=== PATIENT | male | born 1970 | race Caucasian/White ===

== ENCOUNTER 2022-02-11 00:10 | Inpatient (IN) | payer MEDICAID ==
[2022-02-11] VITALS (7 sets, daily range): BP systolic 94–122
[~2022-02-11] VITALS: Ht 180.3 cm; Wt 60.8 kg
[~2022-02-11 00:10] MED LIST: ACET600C5 PO; ASCO500C18 PO; GUAI100S14 PO; IPRA0.2S53 IH; ONDA4TAB55 PO; SIME80TA15 PO
--- NOTE | 2022-02-11 00:33 | NUR ---
Triaged pt and pt waiting on ambulance gurney until a bed opens up. Pt is A&Ox4. VSS. Medics with pt. Dr. Sommers notified.
--- NOTE | 2022-02-11 00:40 | NUR ---
SERG Julian at bedside examining patient.
--- NOTE | 2022-02-11 00:50 | NUR ---
EKG performed at by Davida ABDULLAHI. Physician given copy of EKG for review.
--- NOTE | 2022-02-11 00:55 | NUR ---
food technician at bedside.
[2022-02-11 01:51] LABS: BASOPHILS % (AUTO) 0.4 % (0.0-2.0); EOSINOPHILS # (AUTO) 0.1 K/uL (0.0-0.4); EOSINOPHILS % (AUTO) 0.6 % (0.0-4.0); HEMATOCRIT 43.6 % (36-54); HEMOGLOBIN 14.4 g/dL (14.0-18.0); LYMPHOCYTES # (AUTO) 2.7 K/uL (1.0-5.5); LYMPHOCYTES % (AUTO) 23.4 % (20.5-51.5); MEAN CORPUSCULAR HEMOGLOBIN 30 pg (27-31); MEAN CORPUSCULAR HGB CONC 33 % (32-36); MEAN CORPUSCULAR VOLUME 90 fL (79.0-98.0); MONOCYTES # (AUTO) 1.1 K/uL (0.0-1.0); MONOCYTES % (AUTO) 9.8 % (1.7-9.3); NEUTROPHILS # (AUTO) 7.5 K/uL (1.8-7.7); NEUTROPHILS % (AUTO) 65.8 % (40.0-70.0); PLATELET COUNT (AUTO) 162 K/uL (130-430); RED BLOOD CELL COUNT(AUTO) 4.84 MIL/uL (4.2-6.2); RED CELL DISTRIBUTION WIDTH 17.5 % (9.0-15.0); WHITE BLOOD COUNT (AUTO) 11.4 K/uL (4.8-10.8)
[2022-02-11] MEDS ORDERED: OXYCODONE/ACETAMINOPHEN *10*mg/325 mg TABLET PO ONE (02:00)
[2022-02-11 02:05] LABS: ANION GAP 15 (5-15); CALCIUM 10.2 mg/dL (8.4-11.0); CHLORIDE 96 mmol/L (98-107); GLUCOSE 93 mg/dL (70-99); UREA NITROGEN, BLOOD 61 mg/dL (8-21)
[2022-02-11 02:07] LABS: GFR AFRICAN AMERICAN 8 mL/min (>90)
[2022-02-11 02:09] LABS: PROTHROMBIN TIME 10.8 SECS (9.5-12.5)
[2022-02-11 02:23] LABS: ALANINE AMINOTRANSFERASE 34 U/L (12-78); ALBUMIN 2.7 g/dL (3.4-4.8); ASPARTATE AMINOTRANSFERASE 49 U/L (10-37); TOTAL BILIRUBIN 0.7 mg/dL (0.0-1.0)
[2022-02-11] MEDS ORDERED: POTASSIUM CHLORIDE 20 MEQ/PKT PACKET GT ONE (03:00)
[2022-02-11 04:59] LABS: BASOPHILS # (AUTO) 0.1 K/uL (0.0-0.2); BASOPHILS % (AUTO) 0.5 % (0.0-2.0); EOSINOPHILS # (AUTO) 0.1 K/uL (0.0-0.4); EOSINOPHILS % (AUTO) 0.8 % (0.0-4.0); HEMATOCRIT 39.3 % (36-54); HEMOGLOBIN 13.1 g/dL (14.0-18.0); LYMPHOCYTES # (AUTO) 2.6 K/uL (1.0-5.5); LYMPHOCYTES % (AUTO) 23.5 % (20.5-51.5); MEAN CORPUSCULAR HEMOGLOBIN 30 pg (27-31); MEAN CORPUSCULAR HGB CONC 33 % (32-36); MEAN CORPUSCULAR VOLUME 90 fL (79.0-98.0); MONOCYTES # (AUTO) 1.2 K/uL (0.0-1.0); NEUTROPHILS % (AUTO) 64.2 % (40.0-70.0); PLATELET COUNT (AUTO) 148 K/uL (130-430); RED BLOOD CELL COUNT(AUTO) 4.35 MIL/uL (4.2-6.2); WHITE BLOOD COUNT (AUTO) 10.9 K/uL (4.8-10.8)
--- NOTE | 2022-02-11 05:10 | NUR ---
Admit bed requested Patient will be admitted to care of . Admitted to TELEMETRY unit. Diagnosis DIALYSIS CATHETER MALFUNCTION Inpatient (Yes or No) YES Observation (Yes or No) NO Orientation concerns or request close to nursing station (Yes or No) NO Covid Status NEGATIVE On vent or bipap NO Isolation requirements NO Needs a sitter NO From Home (Yes or if No enter name of facility)[facility]] Requires Dialysis (Yes or No) YES Med Rec Completed (Yes of No) YES
[2022-02-11 05:13] LABS: CALCIUM 10.1 mg/dL (8.4-11.0)
[2022-02-11 05:18] LABS: ALBUMIN 2.5 g/dL (3.4-4.8); CREATININE 8.98 mg/dL (0.55-1.30); TOTAL BILIRUBIN 0.7 mg/dL (0.0-1.0)
--- NOTE | 2022-02-11 05:18 | NUR ---
MARTITA RECEIVED FROM [facility] K 2.3
[2022-02-11] MEDS ORDERED: NS IV ONE (05:30)
[2022-02-11] MEDS ORDERED: KCL IV ONE (05:30)
[2022-02-11] MEDS ORDERED: LIDOCAINE JECT IV ONE (05:30)
--- NOTE | 2022-02-11 06:11 | NUR ---
PT WAS TRANSFERED TO BED 130 VIA BED, WITH NURSE AND EMT. PT UNABLE TO AMBULATE, TOLERATED TRANSFER WELL NURSE AT BEDSIDE TO RECEIVE PT. PT A&OX4, NO DISTRESS NOTED.
--- NOTE | 2022-02-11 06:33 | NUR ---
CONSULTATION PAGED REASON FOR CONSULTATION:DIALYSIS CATHETER MALFUNCTION WAS CONSULT CALLED?Y PERSON WHO WAS NOTIFIED:MILE CONSULTING PHYSICIAN:FILOMENA GARIBAY ( SENIOR RD ENGINEER) CAPACITY PLANNER SPECIALTY:NEPHRO CAPACITY PLANNER PHONE NUMBER:[phone] REQUESTING PHYSICIAN:JANET IBARRA
--- NOTE | 2022-02-11 06:45 | NUR ---
ADMISSION NOTE Received patient from ER via gurney. Patient admitted with diagnosis of DIALYSIS CATHETER MALFUNCTION. Patient is awake, alert, oriented X 4. Patient oriented to hospital room, call light, toileting, pain management and safety-teach back done. Patient informed that their room number is 130A. Personal belongings checked and Belongings List documented. Call light within reach.
[2022-02-11] MEDS ORDERED: POTASSIUM CHLORIDE 20 MEQ/PKT PACKET PO ONE (08:45)
[2022-02-11] MEDS ORDERED: POTASSIUM CHLORIDE 20 MEQ TAB.PRT.SR GT ONE (08:45)
[2022-02-11] MEDS ORDERED: ALTEPLASE 2 MG VIAL MC ONE (09:00)
[2022-02-11] MEDS ORDERED: LevALBUTEROL HCL 1.25 MG/0.5 ML *CONC.* VIAL.NEB (XOPENEX CONC.) INH PRN (09:00)
[2022-02-11] MEDS ORDERED: POTASSIUM CHLORIDE 20 MEQ/PKT PACKET ONE (09:08)
[2022-02-11] MEDS: SIMETHICONE 80 MG TAB.CHEW PO SCH ×3 (09:09→21:01)
[2022-02-11] MEDS: LevALBUTEROL HCL 1.25 MG/0.5 ML *CONC.* VIAL.NEB (XOPENEX CONC.) INH SCH ×3 (10:16→23:42)
--- NOTE | 2022-02-11 12:35 | NUR ---
CONSULTATION PAGED REASON FOR CONSULTATION:DIALYSIS CATHETER MALFUNCTIONIONG WAS CONSULT CALLED?Y PERSON WHO WAS NOTIFIED:EXCHANGE CONSULTING PHYSICIAN:CECI AUGUSTIN BRUSH CLEARER SURVEYING SPECIALTY:SURGEON BRUSH CLEARER SURVEYING PHONE NUMBER:[phone] REQUESTING PHYSICIAN:JANET IBARRA
[2022-02-11] MEDS: ONDANSETRON HCL 4 MG/2 ML VIAL IVP PRN (12:46)
[2022-02-11 14:13] LABS: ALBUMIN 2.7 g/dL (3.4-4.8); CALCIUM 9.8 mg/dL (8.4-11.0); TOTAL BILIRUBIN 0.7 mg/dL (0.0-1.0)
[2022-02-11 14:55] LABS: CREATININE 9.18 mg/dL (0.55-1.30)
[2022-02-11] MEDS ORDERED: METOCLOPRAMIDE HCL 10 MG/2 ML VIAL IVP PRN (16:45)
[2022-02-11] MEDS ORDERED: NS 1000 ML IV.SOLN IV ONE (16:55)
[2022-02-11] MEDS ORDERED: fentaNYL CITRATE/PF 100 MCG/2 ML AMP IVP ONE (16:55)
[2022-02-11] MEDS ORDERED: CEFAZOLIN 1 GM IVPB PREMIX 50 ML IV ONE (16:55)
[2022-02-11] MEDS ORDERED: NS IRRIG SOLN 1000 ML IR ONE (16:55)
[2022-02-11] MEDS ORDERED: BUPIVACAINE /PF 0.5% 30 ML VIAL INJ ONE (16:55)
[2022-02-11] MEDS ORDERED: ONDANSETRON HCL 4 MG/2 ML VIAL IVP ONE (16:55)
[2022-02-11] MEDS ORDERED: METOCLOPRAMIDE HCL 10 MG/2 ML VIAL IVP ONE (16:55)
[2022-02-11] MEDS ORDERED: HEPARIN SODIUM, PORCINE 10,000 UNITS/ 10 ML VIAL MC ONE (16:55)
[2022-02-11] MEDS ORDERED: ETOMIDATE 20 MG/ 10 ML VIAL (AMIDATE) IVP ONE (16:55)
[2022-02-11] MEDS ORDERED: SUCCINYLCHOLINE CHLORIDE 20 MG/ML(QUELICIN) IVP ONE (16:55)
--- NOTE | 2022-02-11 17:37 | NUR ---
CONSULTATION PAGED REASON FOR CONSULTATION:COFFEE GROND EMESIS WAS CONSULT CALLED?Y PERSON WHO WAS NOTIFIED:ANU CONSULTING PHYSICIAN:OBDULIA HARRINGTON PARK WORKER SPECIALTY:GI PARK WORKER PHONE NUMBER:[phone] REQUESTING PHYSICIAN:JANET IBARRA
[2022-02-11] MEDS ORDERED: PANTOPRAZOLE SODIUM 40 MG/VIAL (PROTONIX) IVP ONE (18:00)
--- NOTE | 2022-02-11 18:35 | NUR ---
CLOSING NOTE PT is awake and alert x4, no febrile, and no pain reported. Stable VTs. Coffee ground emesis, zofran and reglan given. MD Leonard notified and ordered NPO excepts meds and GI consult with Dr. Rico. Dr. Rico notified. Possible hemodialysis catheter replacement by Dr. Angulo
[2022-02-11] MEDS ORDERED: D5NS 1,000 ML IV SCH (20:00)
[2022-02-11] MEDS: KCL 20 mEq in D5NS 1000 mL 1,000 ML IV SCH (21:01)
[2022-02-12 00:16] VITALS: BP_SYST 89
[2022-02-12 04:00] VITALS: BP_SYST 96
[2022-02-12 06:56] LABS: BASOPHILS % (AUTO) 0.4 % (0.0-2.0); EOSINOPHILS # (AUTO) 0.1 K/uL (0.0-0.4); EOSINOPHILS % (AUTO) 0.9 % (0.0-4.0); HEMATOCRIT 35.2 % (36-54); HEMOGLOBIN 11.8 g/dL (14.0-18.0); LYMPHOCYTES # (AUTO) 2.1 K/uL (1.0-5.5); LYMPHOCYTES % (AUTO) 25.8 % (20.5-51.5); MEAN CORPUSCULAR HEMOGLOBIN 30 pg (27-31); MEAN CORPUSCULAR HGB CONC 34 % (32-36); MEAN CORPUSCULAR VOLUME 91 fL (79.0-98.0); MONOCYTES # (AUTO) 0.9 K/uL (0.0-1.0); MONOCYTES % (AUTO) 11.4 % (1.7-9.3); NEUTROPHILS % (AUTO) 61.5 % (40.0-70.0); PLATELET COUNT (AUTO) 121 K/uL (130-430); RED BLOOD CELL COUNT(AUTO) 3.89 MIL/uL (4.2-6.2); RED CELL DISTRIBUTION WIDTH 17.3 % (9.0-15.0); WHITE BLOOD COUNT (AUTO) 8.1 K/uL (4.8-10.8)
--- NOTE | 2022-02-12 06:59 | NUR ---
Patient stable this shift he is going for removal and replacement of the dialysis catheter. vitals within normal, no signs of distress, he has his potassium running. To endorse to oncoming RN for continuity of care.
[2022-02-12 07:16] LABS: ALBUMIN 2.3 g/dL (3.4-4.8); CALCIUM 9.6 mg/dL (8.4-11.0); TOTAL BILIRUBIN 0.6 mg/dL (0.0-1.0)
[2022-02-12] MEDS: LevALBUTEROL HCL 1.25 MG/0.5 ML *CONC.* VIAL.NEB (XOPENEX CONC.) INH SCH ×3 (07:55→23:52)
[2022-02-12 07:58] LABS: CREATININE 9.42 mg/dL (0.55-1.30)
[2022-02-12 08:06] VITALS: BP_SYST 108
--- NOTE | 2022-02-12 09:09 | NUR ---
ATTENDING MD DR JIMÉNEZ WAS CALLED, RE: CRITICAL K LEVEL.
[2022-02-12] MEDS: KCL 20 mEq in D5NS 1000 mL 1,000 ML IV SCH (09:20)
[2022-02-12] MEDS ORDERED: POTASSIUM CHLORIDE 20 MEQ TAB.PRT.SR GT ONE (09:30)
[2022-02-12] MEDS: PANTOPRAZOLE SODIUM 40 MG/VIAL (PROTONIX) IVP SCH (09:58)
[2022-02-12] MEDS: ASCORBIC ACID 500 MG TABLET PO SCH (09:58)
[2022-02-12] MEDS: SIMETHICONE 80 MG TAB.CHEW PO SCH ×3 (10:01→21:49)
[2022-02-12 11:50] VITALS: BP_SYST 107
[2022-02-12 16:35] VITALS: BP_SYST 120
[2022-02-12] MEDS ORDERED: MORPHINE 4 MG INJ. 4 MG/ML VIAL IVP PRN ×3 (18:00)
[2022-02-12] MEDS ORDERED: ONDANSETRON HCL 4 MG/2 ML VIAL IVP PRN (18:00)
[2022-02-12] MEDS ORDERED: ACETAMINOPHEN I.V. 1000 MG 100 ML IV ONE ×2 (18:18→18:30)
[2022-02-12 20:00] VITALS: BP_SYST 119
--- NOTE | 2022-02-12 20:35 | NUR ---
Patient awaited all day for surgery to replace his dialysis catheter. NPO since patient arrived except for med's and one time dose of potassium 40 mEq via g tube for low K of2.9. Pre op check list completed prior to surgery all consent's signed. Bean Picker used to explain plan of care and consent's. Patient able to consent for self. left for surgery around 16:00 and then returned at 19:00 VSS afebrile with BP 106/65 HR 85 RR 18 SAT's 100 percent on 4 liter's N/C Dr dunlap called after patient returned from surgery to resume TF's IVF's to decrease to 30cc/hr and resume all other orders including AM lab's CBC and BMP. Patient back on monitor reporting off to night RN
[2022-02-13] VITALS: BP_SYST 109
[2022-02-13] MEDS: KCL 20 mEq in D5NS 1000 mL 1,000 ML IV SCH (02:19)
[2022-02-13 04:00] VITALS: BP_SYST 112
[2022-02-13] MEDS: LevALBUTEROL HCL 1.25 MG/0.5 ML *CONC.* VIAL.NEB (XOPENEX CONC.) INH SCH ×3 (07:18→23:00)
[2022-02-13 07:52] VITALS: BP_SYST 126
[2022-02-13 07:59] LABS: CALCIUM 9.4 mg/dL (8.4-11.0)
[2022-02-13 08:10] LABS: CREATININE 9.72 mg/dL (0.55-1.30)
--- NOTE | 2022-02-13 08:11 | NUR ---
CRITICAL INFORMED RN OF CRITICAL CREATININE 9.72 AND + FOR MRSA
[2022-02-13 08:16] LABS: BASOPHILS % (AUTO) 0.5 % (0.0-2.0); EOSINOPHILS # (AUTO) 0.2 K/uL (0.0-0.4); EOSINOPHILS % (AUTO) 2.8 % (0.0-4.0); HEMATOCRIT 35.3 % (36-54); HEMOGLOBIN 11.8 g/dL (14.0-18.0); LYMPHOCYTES # (AUTO) 1.6 K/uL (1.0-5.5); LYMPHOCYTES % (AUTO) 22.6 % (20.5-51.5); MEAN CORPUSCULAR HEMOGLOBIN 31 pg (27-31); MEAN CORPUSCULAR HGB CONC 33 % (32-36); MEAN CORPUSCULAR VOLUME 92 fL (79.0-98.0); MONOCYTES # (AUTO) 0.7 K/uL (0.0-1.0); MONOCYTES % (AUTO) 10.5 % (1.7-9.3); NEUTROPHILS # (AUTO) 4.4 K/uL (1.8-7.7); NEUTROPHILS % (AUTO) 63.6 % (40.0-70.0); PLATELET COUNT (AUTO) 101 K/uL (130-430); RED BLOOD CELL COUNT(AUTO) 3.86 MIL/uL (4.2-6.2); RED CELL DISTRIBUTION WIDTH 17.7 % (9.0-15.0); WHITE BLOOD COUNT (AUTO) 6.9 K/uL (4.8-10.8)
[2022-02-13] MEDS: METOCLOPRAMIDE HCL 10 MG/2 ML VIAL IVP SCH ×2 (11:00→19:39)
[2022-02-13] MEDS: PANTOPRAZOLE SODIUM 40 MG/VIAL (PROTONIX) IVP SCH (11:24)
[2022-02-13] MEDS: SIMETHICONE 80 MG TAB.CHEW PO SCH ×4 (11:24→23:50)
[2022-02-13] MEDS: ASCORBIC ACID 500 MG TABLET PO SCH (11:24)
[2022-02-13 11:59] VITALS: BP_SYST 121
[2022-02-13] MEDS ORDERED: HEPARIN SODIUM,PORCINE 5,000 UNITS/ML VIAL MC PRN (12:15)
--- NOTE | 2022-02-13 12:23 | NUR ---
Dietitian recommendations: 1. Consider Nepro with goal rate of 45 ml/h. TF at 45 ml/h will provide 1944 Kcals, 87 gm protien, 785 ml free water. TF will meet 107% of lower end of Kcal need and 102% of upper end of estimated protein need. 2. Additional water flush per MD. 2. Consider Nephrovite. Please refer to nutrition assessment for details. JOSE, RD
[2022-02-13 16:00] VITALS: BP_SYST 124
[2022-02-13 20:00] VITALS: BP_SYST 117
--- NOTE | 2022-02-13 20:19 | NUR ---
PATIENT TOLERATED DIALYSIS WELL TODAY AFTER RECEIVING NEW HD CATHETER YESTERDAY. CONTINUES TO HAVE GI PROBLEMS NOT TOLERATING TUBE FEEDINGS HAVING LOT'S OF NAUSEA. RECEIVING REGLAN FOR GI SYMPTOMS. ABDOMEN DISTENDED FEEDING'S TURNED OFF AROUND 15:30 PATIENT NAUSEATED REQUESTING TO HAVE FEEDING'S OFF. PATIENT'S ATTENDING DR NOTIFIED WITH NEW ORDERS OF CHEST X RAY NOW BREATHING TREATMENT SPUTUM FOR CULTURE AND TO CONTINUE TO MONITOR. CONTINUES TO HAVE IVF'S AT 30CC/HR. REPORTED OFF TO NIGHT RN SPUTUM COLLECTED AND IN LAB. WATCHING TV APPEARS TO BE MORE COMFORTABLE. SISTER CAME TO SEE PATIENT TODAY.
--- NOTE | 2022-02-13 21:59 | NUR ---
Dr. Knight and Dr. Ojedaium informed regarding clogged Gtube , IV fluid increased to 60 ml/hour
--- NOTE | 2022-02-13 23:00 | NUR ---
Tried to declogged the GTUBE by milking , flushing with warm water , pressure for the second time failed again., dressing changed
[2022-02-14] VITALS: BP_SYST 122
[2022-02-14] MEDS: METOCLOPRAMIDE HCL 10 MG/2 ML VIAL IVP SCH ×4 (02:44→21:32)
[2022-02-14] MEDS: KCL 20 mEq in D5NS 1000 mL 1,000 ML IV SCH ×2 (02:45→18:59)
[2022-02-14] MEDS: LevALBUTEROL HCL 1.25 MG/0.5 ML *CONC.* VIAL.NEB (XOPENEX CONC.) INH SCH ×2 (07:20→15:00)
[2022-02-14 08:00] VITALS: BP_SYST 109
[2022-02-14 08:16] LABS: CALCIUM 9.1 mg/dL (8.4-11.0); CREATININE 7.14 mg/dL (0.55-1.30)
[2022-02-14 08:29] LABS: BASOPHILS % (AUTO) 0.5 % (0.0-2.0); EOSINOPHILS # (AUTO) 0.3 K/uL (0.0-0.4); EOSINOPHILS % (AUTO) 3.4 % (0.0-4.0); HEMATOCRIT 35.6 % (36-54); HEMOGLOBIN 11.7 g/dL (14.0-18.0); LYMPHOCYTES # (AUTO) 2.2 K/uL (1.0-5.5); LYMPHOCYTES % (AUTO) 26.9 % (20.5-51.5); MEAN CORPUSCULAR HEMOGLOBIN 30 pg (27-31); MEAN CORPUSCULAR HGB CONC 33 % (32-36); MEAN CORPUSCULAR VOLUME 92 fL (79.0-98.0); MONOCYTES # (AUTO) 0.9 K/uL (0.0-1.0); MONOCYTES % (AUTO) 10.4 % (1.7-9.3); NEUTROPHILS # (AUTO) 4.9 K/uL (1.8-7.7); NEUTROPHILS % (AUTO) 58.8 % (40.0-70.0); PLATELET COUNT (AUTO) 71 K/uL (130-430); RED BLOOD CELL COUNT(AUTO) 3.89 MIL/uL (4.2-6.2); RED CELL DISTRIBUTION WIDTH 17.6 % (9.0-15.0); WHITE BLOOD COUNT (AUTO) 8.3 K/uL (4.8-10.8)
[2022-02-14] MEDS ORDERED: DIATR MEGLU/DIATRIZ SOD 30 ML SOLUTION PO ONE (08:38)
[2022-02-14] MEDS: PANTOPRAZOLE SODIUM 40 MG/VIAL (PROTONIX) IVP SCH (08:47)
[2022-02-14] MEDS: ASCORBIC ACID 500 MG TABLET PO SCH (08:47)
[2022-02-14 11:49] VITALS: BP_SYST 118
[2022-02-14] MEDS ORDERED: POTASSIUM CHLORIDE 20 MEQ/PKT PACKET GT ONE ×2 (13:00→17:00)
--- NOTE | 2022-02-14 13:25 | NUR ---
PT WAS SEEN FOR DYSPHAGIA. PT WAS COUGHING WITH TRIALS OF APPLE SAUCE AND NECTAR THICK LIQUID. RECOMMENDATION NOTHING BY MOUTH
[2022-02-14] MEDS: SIMETHICONE 80 MG TAB.CHEW PO SCH ×2 (15:00→21:31)
[2022-02-14 15:51] LABS: INR 1.1 (0.80-1.20); PROTHROMBIN TIME 11.6 SECS (9.5-12.5)
[2022-02-14 17:01] VITALS: BP_SYST 116
--- NOTE | 2022-02-14 19:45 | NUR ---
Tube feeding started Seen and examined by Dr. Leonard tube feeding started @ 30 ML/hour aspiration precaution, prior to start of feeding checked no residual, will monitor.
--- NOTE | 2022-02-14 19:51 | NUR ---
PATIENT G TUBE CLOGGED THIS MORNING ABLE TO UNCLOG TUBE WITH OUT PROBLEMS USING [place]. PATIENT REFUSED GI TEST ABLE TO GET A FEW PICTURE'S OF GI SYSTEM DOCTOR NOTIFIED. GI DOCTOR HERE THIS MORNING TO SEE PATIENT FOR FIRST TIME. PATIENT CONTINUES TO COUGH UP LOT'S OF SECRETION'S CONSTANTLY. POTASSIUM LEVEL LOW AGAIN TODAY DR JIMÉNEZ NOTIFIED WITH ORDER'S OF 40MEQ VIA G TUBE. IV ACCESS LOSS AND OBTAINED ORDERS FOR PICC LINE. CONSENT OBTAINED PROTOCOL FOLLOWED PRIOR TO PICC LINE NURSE PLACING NEW PICC LINE FOLLOW UP STAT CHEST X RAY COMPLETED AT SHIFT CHANGE AND NIGHT RN TO FOLLOW UP. STAT REPEAT POTASSIUM LEVEL DONE AFTER REPLACING POTASSIUM WITH K COMING BACK NORMAL. PATIENT NEW HD CATHETER DRAINING SMALL AMOUNT OF SEROUS BLOOD. SMALL DRESSING APPLIED AND NEW DRESSING APPLIED USING STERILE TECHNIQUE. PLAN OF CARE CONTINUE TO MONITOR GI SYSTEM AND KIDNEY STATUS. REMAIN'S NPO FAILED SWALLOW TEST TODAY. EMOTIONAL SUPPORT THERAPEUTIC COMMUNICATION GIVEN. PATIENT GET'S DISCOURAGED FROM TIME TO TIME LASHING OUT AT STAFF
[2022-02-14 20:00] VITALS: BP_SYST 128
--- NOTE | 2022-02-14 20:00 | NUR ---
Post PICC LINE Chest Xray seen by ER Dr. Matos and said OK to use PICC line,; Dr. Horacio resendiz.
--- NOTE | 2022-02-14 22:45 | NUR ---
GI Had big large bowel movement loose stool brown color, perineal care given ,
[2022-02-15 00:13] VITALS: BP_SYST 130
[2022-02-15] MEDS: LevALBUTEROL HCL 1.25 MG/0.5 ML *CONC.* VIAL.NEB (XOPENEX CONC.) INH SCH ×3 (05:53→15:26)
--- NOTE | 2022-02-15 06:00 | NUR ---
Tolerating tube feeding @ 30 ml /hour no vomiting, aspiration precaution , perineal care given , repositioned.
[2022-02-15 07:01] LABS: CALCIUM 8.9 mg/dL (8.4-11.0)
[2022-02-15 07:04] LABS: CREATININE 7.82 mg/dL (0.55-1.30)
--- NOTE | 2022-02-15 07:30 | NUR ---
rn opening note report was endorsed by night nurse. patient is awake and alert laying in bed. report was endorsed by night nurse. no other needs at this time.
[2022-02-15 08:00] VITALS: BP_SYST 132
[2022-02-15] MEDS: ASCORBIC ACID 500 MG TABLET PO SCH (08:16)
[2022-02-15] MEDS: SIMETHICONE 80 MG TAB.CHEW PO SCH ×3 (08:16→22:14)
[2022-02-15] MEDS: PANTOPRAZOLE SODIUM 40 MG/VIAL (PROTONIX) IVP SCH (08:17)
[2022-02-15] MEDS: ONDANSETRON HCL 4 MG/2 ML VIAL IVP PRN (08:19)
--- NOTE | 2022-02-15 08:35 | NUR ---
MEDICATION PATIENT IS AWAKE AND ALERT SITTING UP IN BED. COMPLAINS OF NAUSEA AND VOMITING MEDICATED PER ORDER. PATIENTS G TUBE HAS 0 RESIDUAL. PATIENT EDUCATED LIVE OUT NANNY LIGHT FOR ASSISTANCE. ALL SCHEDULED MEDICATION GIVEN PER ORDER. PATIENT HAS NO OTHER NEEDS AT THIS TIME.
--- NOTE | 2022-02-15 09:30 | NUR ---
Tube feeding pateint is still throwing up is requesting for G tube feeding to be turned off. G tube feeding turned off. patient educated executive receptionist light for assistance. call light is with him. no other needs at this time.
[2022-02-15 11:39] VITALS: BP_SYST 109
[2022-02-15] MEDS: KCL 20 mEq in D5NS 1000 mL 1,000 ML IV SCH (12:51)
[2022-02-15] MEDS: METOCLOPRAMIDE HCL 10 MG/2 ML VIAL IVP SCH ×2 (12:51→19:25)
--- NOTE | 2022-02-15 12:55 | NUR ---
medication patients medication given per order. iv fluid hung per order. patients tube feeding started back up at 10ml/hr to see how he tolerates it. patient is not actively throwing up. educated international marketing coordinator light for assistance. call light is with him. patient has no other needs at this time.
--- NOTE | 2022-02-15 14:30 | NUR ---
increased tube feeding to 20ml/hr Dr. dunlap at nurses station informed him of patient requesting it off and turned back on and slowly increasing ok to keep increasing as long as tolerating to goal rate. patient is still not throwing up. patient shows no signs of any distress. breathing is equal and non labored. all safety precautions in place. call light is with her. no other needs at this time.
--- NOTE | 2022-02-15 15:16 | NUR ---
Discharge Planning: DCP faxed pt referral to [facility] [phone]
--- NOTE | 2022-02-15 16:49 | NUR ---
Increased tube feeding to 30ml/hr. patient is laying in bed no signs of any distress. Breathing is equal and non labored. patient has all safety precautions in place. call light is with in reach. no other needs at this time.
[2022-02-15 18:19] VITALS: BP_SYST 130
--- NOTE | 2022-02-15 19:15 | NUR ---
rn neeraj note patient appears to be resting with both eyes closed. patients scheduled medication given as ordered. all safety precautions in place no signs of any distress. call light is with him educated to use for assistance. report was endorsed by night nurse.
[2022-02-15 21:00] VITALS: BP_SYST 135
--- NOTE | 2022-02-15 21:00 | NUR ---
Patient Gastric Tube noted to be clogged , charge Nurse informed made aware will continue to try to un klog / .
--- NOTE | 2022-02-15 23:00 | NUR ---
HEMODIALYSIS order printed and given to Secretary Specialist , DAPHNEY for AM .
--- NOTE | 2022-02-15 23:18 | NUR ---
Gastric TUBE unclogged & Nephro TF running infusing 30 ML hour Reglan also given for nausea .
[2022-02-16 01:00] VITALS: BP_SYST 131
[2022-02-16] MEDS: METOCLOPRAMIDE HCL 10 MG/2 ML VIAL IVP SCH ×3 (03:15→21:00)
[2022-02-16] MEDS: KCL 20 mEq in D5NS 1000 mL 1,000 ML IV SCH ×2 (03:15→21:01)
--- NOTE | 2022-02-16 03:17 | NUR ---
HOURLY ROUNDING REGLAN 5 MG IVP given for nausea and helpful .
[2022-02-16] MEDS: LevALBUTEROL HCL 1.25 MG/0.5 ML *CONC.* VIAL.NEB (XOPENEX CONC.) INH SCH ×3 (04:09→23:50)
[2022-02-16 06:49] LABS: CALCIUM 9.4 mg/dL (8.4-11.0)
[2022-02-16 06:53] LABS: BASOPHILS # (AUTO) 0.1 K/uL (0.0-0.2); BASOPHILS % (AUTO) 0.6 % (0.0-2.0); EOSINOPHILS # (AUTO) 0.3 K/uL (0.0-0.4); EOSINOPHILS % (AUTO) 3.5 % (0.0-4.0); HEMATOCRIT 32.6 % (36-54); HEMOGLOBIN 10.6 g/dL (14.0-18.0); LYMPHOCYTES # (AUTO) 2.1 K/uL (1.0-5.5); LYMPHOCYTES % (AUTO) 24.7 % (20.5-51.5); MEAN CORPUSCULAR HEMOGLOBIN 30 pg (27-31); MEAN CORPUSCULAR HGB CONC 33 % (32-36); MEAN CORPUSCULAR VOLUME 93 fL (79.0-98.0); MONOCYTES # (AUTO) 0.6 K/uL (0.0-1.0); NEUTROPHILS # (AUTO) 5.4 K/uL (1.8-7.7); NEUTROPHILS % (AUTO) 64.2 % (40.0-70.0); PLATELET COUNT (AUTO) 83 K/uL (130-430); RED BLOOD CELL COUNT(AUTO) 3.51 MIL/uL (4.2-6.2); RED CELL DISTRIBUTION WIDTH 18.1 % (9.0-15.0); WHITE BLOOD COUNT (AUTO) 8.4 K/uL (4.8-10.8)
[2022-02-16 07:19] LABS: CREATININE 7.83 mg/dL (0.55-1.30)
--- NOTE | 2022-02-16 07:28 | NUR ---
PHONED PAGED DR CRAWFORD D/T CR 7.18
[2022-02-16 08:00] VITALS: BP_SYST 129
[2022-02-16] MEDS: SIMETHICONE 80 MG TAB.CHEW PO SCH ×3 (09:04→21:00)
[2022-02-16] MEDS: ASCORBIC ACID 500 MG TABLET PO SCH (09:04)
[2022-02-16] MEDS: PANTOPRAZOLE SODIUM 40 MG/VIAL (PROTONIX) IVP SCH (09:04)
--- NOTE | 2022-02-16 12:29 | NUR ---
REPORT ENDORSED CARE TO KAYLEN TORRES
--- NOTE | 2022-02-16 12:53 | NUR ---
Nutrition F/U Admitting Diagnosis dialysis catheter malfunction Reviewed Pertinent Medical/Surgical Hx Medical Record Medical History Comment: PMH: history of stroke s/p G-tube for feeding, ESRD on HD, anemia of chronic disease, asthma Reason for admission: Presented from alf with HD line dysfunction, hypokalemia, ileus likely 2/2 decreased mobility Subjective Information The patient was having HD at time of visit, and was sleeping. TF was running at 30 mL/hr and according to chart, has been at 30mL since 02/12; w/ GRV under 30 mL since the . Current TF rate: Provides: 1296 kcal, 58 g pro, and 523 mL free water Meets: 71% of lower kcal, 79% lower protein needs Per EMR review , LBM:02/14 x 1; abdomen soft, non-distended, active bowel sounds. Current Diet Order/Nutrition Support Nepro at 50 ml/h x 5 days Patient/Significant Other Unable To Verbalize Education Provided Not Indicated NEW Pertinent Medications D5NS @ w/ 20 mEq KCl at 60 ml/h (245 Kcals), Reglan, Zofran, VIT C, Protonix IV NEW Pertinent Labs BUN 53(H), creatinine 7.83(H)*, K+ 3.5(WNL), glucose 77(WNL), eGFR 8 (L) Height (Feet) 5 feet Height (Inches) 11.00 inches Weight (Pounds) 134 pounds Weight (Calculated Kilograms) 60.961680 kilograms Patient Weight 60.781 kg Body Mass Index 18.69 kg/m2 %IBW 78 [place]/Adjusted Body Weight 172# (78.2 Kg) Recent Weight Change noted with significantly different weight from 01/2022 admission wt 71.7Kg Gastrointestinal Symptoms Vomiting Difficulty With: Swallowing Food Allergies no food allergies documented Usual Diet At Home Nepro at 40 ml/h per MD note Skin Integrity Comment: Ywatt score 17 No other skin issues documented. Edema: none documented Estimated Energy Expenditure (kcals/day) 3302-8296 (ABW 60.8 K-35 Kcals/Kg maintenance HD) Estimated Protein Required (g/day) 73-85 (ABW 60.8 K.2-1.4 gm/Kg, maintenance HD) Estimated Fluid Required (l/day) per MD Problem/Etiology/Signs/Symptoms Potential for intolerance to enteral nutrition via G-tube 2/2 history of ileus related to immobility AEB TF on hold (resolved). Swallowing difficulty R/T CVA AEB G-tube for nutrition provision (ongoing). Altered nutrition-related lab values R/T renal dysfunction AEB abnormal BUN/creatinine, K+ (ongoing) Increased risk of developing a pressure injury AEB history of stroke now with limited mobility (ongoing). Expected Outcomes/Goals Monitor tolerance of enteral nutrition with goal of TF providing >85% of the patient's estimated nutrition needs, nutrition-related lab values within acceptable range, maintain BMI >18.5 Kg/m2. Dietitian Recommendations 1. Consider Nepro with goal rate of 45 ml/h. TF at 45 ml/h will provide 1944 Kcals, 87 gm protein, 785 ml free water. TF will meet 107% of lower end of Kcal need and 102% of upper end of estimated protein need. 2. Additional water flush per MD. 2. Consider Nephrovite Follow Up Mod Risk: F/U in 3-5 days FRANKIE, MPH, RD
--- NOTE | 2022-02-16 12:55 | NUR ---
Dietitian Recommendations 1. Consider Nepro with goal rate of 45 ml/h. TF at 45 ml/h will provide 1944 Kcals, 87 gm protein, 785 ml free water. TF will meet 107% of lower end of Kcal need and 102% of upper end of estimated protein need. 2. Additional water flush per MD. 2. Consider Nephrovite GS, MPH, RD Please refer to RD F/U for further details
--- NOTE | 2022-02-16 13:27 | NUR ---
Patient finished dialysis. BP wnl. Output 2.3L out.
[2022-02-16 13:43] VITALS: BP_SYST 116
[2022-02-16 15:26] VITALS: BP_SYST 134
--- NOTE | 2022-02-16 18:47 | NUR ---
Patient report to be given to oncoming RN. Will continue to monitor. No distress noted. Changed and turned patient. One BM noted.
[2022-02-16 20:00] VITALS: BP_SYST 126
--- NOTE | 2022-02-16 22:00 | NUR ---
Patient alert and oriented x 3, resp with ease and unlabored, abdomen soft and non distended, Nepro at 40ml per Kangaroo pump, gtube was noted to be clogged, gtube declogged easily with 30 cc's of free water area cleaned and dry dressing applied around the stoma site. also patient recieved HD on dayshift 3 l were removed, small amount noted around perma cath, no complaints of pain at site.
[2022-02-17] VITALS: BP_SYST 127
[2022-02-17] MEDS: METOCLOPRAMIDE HCL 10 MG/2 ML VIAL IVP SCH ×3 (03:57→15:14)
[2022-02-17 06:42] LABS: CALCIUM 8.3 mg/dL (8.4-11.0); CREATININE 5.14 mg/dL (0.55-1.30); PHOSPHORUS 2.2 mg/dL (2.7-4.5)
--- NOTE | 2022-02-17 07:00 | NUR ---
Report received from manufacturing shift supervisor RN for continuity of care. Patient stable.
[2022-02-17] MEDS: LevALBUTEROL HCL 1.25 MG/0.5 ML *CONC.* VIAL.NEB (XOPENEX CONC.) INH SCH ×2 (07:11→15:11)
[2022-02-17 07:45] VITALS: BP_SYST 105
[2022-02-17 08:17] LABS: BASOPHILS % (AUTO) 0.4 % (0.0-2.0); EOSINOPHILS # (AUTO) 0.2 K/uL (0.0-0.4); HEMATOCRIT 33.4 % (36-54); HEMOGLOBIN 10.9 g/dL (14.0-18.0); MEAN CORPUSCULAR HEMOGLOBIN 30 pg (27-31); MEAN CORPUSCULAR HGB CONC 33 % (32-36); MEAN CORPUSCULAR VOLUME 92 fL (79.0-98.0); MONOCYTES # (AUTO) 0.6 K/uL (0.0-1.0); MONOCYTES % (AUTO) 8.7 % (1.7-9.3); NEUTROPHILS # (AUTO) 3.6 K/uL (1.8-7.7); NEUTROPHILS % (AUTO) 56.9 % (40.0-70.0); RED BLOOD CELL COUNT(AUTO) 3.64 MIL/uL (4.2-6.2); RED CELL DISTRIBUTION WIDTH 16.9 % (9.0-15.0); WHITE BLOOD COUNT (AUTO) 6.3 K/uL (4.8-10.8)
[2022-02-17] MEDS: PANTOPRAZOLE SODIUM 40 MG/VIAL (PROTONIX) IVP SCH (10:27)
[2022-02-17] MEDS: SIMETHICONE 80 MG TAB.CHEW PO SCH ×3 (10:27→21:38)
[2022-02-17] MEDS: ASCORBIC ACID 500 MG TABLET PO SCH (10:27)
[2022-02-17 11:31] VITALS: BP_SYST 108
[2022-02-17 11:32] LABS: PLATELET COUNT (AUTO) 61 K/uL (130-430)
[2022-02-17] MEDS: KCL 20 mEq in D5NS 1000 mL 1,000 ML IV SCH (13:45)
--- NOTE | 2022-02-17 15:18 | NUR ---
Discharge Planning: DCP followed up with room for pt at [facility] [phone]. There is a covid out break, no rooms available. DCP to follow up
[2022-02-17 16:33] VITALS: BP_SYST 128
--- NOTE | 2022-02-17 18:47 | NUR ---
Called [facility] for bed availability. No bed available due to covid outbreak. Endorsed to car shifter RN.
--- NOTE | 2022-02-17 19:00 | NUR ---
PATIENT ALERT AND ORIENTED X3, RESP WITH EASE, O2 @ 2L VIA NC, PICC IN LEFT ARM INFUSING WITHOUT DIFFICULTY, DENIES PAIN, GTUBE INTACT WITH NEPRO INFUSING A 40 CC/HR VIA KANGAROO PUMP, NO DISTRESS NOTED AT THIS TIME
--- NOTE | 2022-02-17 19:03 | NUR ---
Report given to police shift commander RN for continuity of care. Patient stable condition.
[2022-02-17 20:00] VITALS: BP_SYST 125
--- NOTE | 2022-02-18 | NUR ---
PATIENT RESTING QUIETLY, DENIES DISCOMFORT AT THIS TIME
[2022-02-18] MEDS: LevALBUTEROL HCL 1.25 MG/0.5 ML *CONC.* VIAL.NEB (XOPENEX CONC.) INH SCH ×3 (00:27→15:19)
[2022-02-18 01:50] VITALS: BP_SYST 150
[2022-02-18] MEDS: METOCLOPRAMIDE HCL 10 MG/2 ML VIAL IVP SCH (03:00)
[2022-02-18] MEDS: KCL 20 mEq in D5NS 1000 mL 1,000 ML IV SCH (07:08)
[2022-02-18 07:26] VITALS: BP_SYST 142
--- NOTE | 2022-02-18 07:41 | NUR ---
PATIENT RESTING QUIETLY, NO DISTRESS NOTED THIS AM
--- NOTE | 2022-02-18 08:58 | NUR ---
Patient undergoing dialysis. Medications held. Patient refused other meds at this time.
[2022-02-18] MEDS: SIMETHICONE 80 MG TAB.CHEW PO SCH (09:00)
[2022-02-18] MEDS ORDERED: POLYETHYLENE GLYCOL 3350, 17 GM/ POWD.PACK GT SCH (09:00)
[2022-02-18] MEDS: ASCORBIC ACID 500 MG TABLET PO SCH (09:00)
[2022-02-18] MEDS: PANTOPRAZOLE SODIUM 40 MG/VIAL (PROTONIX) IVP SCH (09:00)
--- NOTE | 2022-02-18 10:33 | NUR ---
[facility], called for room.
[2022-02-18 11:08] VITALS: BP_SYST 120
--- NOTE | 2022-02-18 11:39 | NUR ---
Patient accepted at [facility] Room 31B Number for report [phone]. Discharge disposition 03. Transportation by [employer] [phone]. Transportation arranged for 4PM
[2022-02-18 13:54] VITALS: BP_SYST 109
--- NOTE | 2022-02-18 14:37 | NUR ---
Patient aware of transfer today.
[2022-02-18 17:08] VITALS: BP_SYST 136
--- NOTE | 2022-02-18 17:20 | NUR ---
Patient ready for discharge. All paperwork given. Patient to resume medications per Dr. Leonard orders at [facility]. No distress noted. Vital signs stable. Report given to ambulance. Patient transferred on gurney and was taken to facility.
[2022-02-18 17:46] VITALS: BP_SYST 111
== END 2022-02-18 17:45 | DRG 466 ==
LOC: SED 00:10 → STU 03:44
PROVIDERS: ADMIT Family Medicine; ATTEND Family Medicine
PROC: 5A1D70Z Performance of Urinary Filtration, Intermittent, Less than 6 Hours Per Day (ICD-10-PCS; 2022-02-11)
PROC: 0JPW3XZ Removal of Tunneled Vascular Access Device from Lower Extremity Subcutaneous Tissue and Fascia, Percutaneous Approach (ICD-10-PCS; principal; 2022-02-12)
PROC: 02PYX3Z Removal of Infusion Device from Great Vessel, External Approach (ICD-10-PCS; 2022-02-12)
PROC: 0JH63XZ Insertion of Tunneled Vascular Access Device into Chest Subcutaneous Tissue and Fascia, Percutaneous Approach (ICD-10-PCS; 2022-02-12)
PROC: 02HV33Z Insertion of Infusion Device into Superior Vena Cava, Percutaneous Approach (ICD-10-PCS; 2022-02-12)
PROC: B518ZZA Fluoroscopy of Superior Vena Cava, Guidance (ICD-10-PCS; 2022-02-12)
PROC: B548ZZA Ultrasonography of Superior Vena Cava, Guidance (ICD-10-PCS; 2022-02-12)
PROC: 5A1D70Z Performance of Urinary Filtration, Intermittent, Less than 6 Hours Per Day (ICD-10-PCS; 2022-02-13)
PROC: 02HV33Z Insertion of Infusion Device into Superior Vena Cava, Percutaneous Approach (ICD-10-PCS; 2022-02-14)
PROC: B548ZZA Ultrasonography of Superior Vena Cava, Guidance (ICD-10-PCS; 2022-02-14)
PROC: 5A1D70Z Performance of Urinary Filtration, Intermittent, Less than 6 Hours Per Day (ICD-10-PCS; 2022-02-16)
PROC: 5A1D70Z Performance of Urinary Filtration, Intermittent, Less than 6 Hours Per Day (ICD-10-PCS; 2022-02-18)
DX: T82.41XA Breakdown (mechanical) of vascular dialysis catheter, initial encounter (principal); N18.6 End stage renal disease; G93.40 Encephalopathy, unspecified; E46 Unspecified protein-calorie malnutrition; I48.91 Unspecified atrial fibrillation; K56.0 Paralytic ileus; K92.2 Gastrointestinal hemorrhage, unspecified; D64.9 Anemia, unspecified; E87.6 Hypokalemia; R13.10 Dysphagia, unspecified; Y83.8 Other surgical procedures as the cause of abnormal reaction of the patient, or of later complication, without mention of misadventure at the time of the procedure; J45.909 Unspecified asthma, uncomplicated; Z20.822 Contact with and (suspected) exposure to COVID-19; Z99.2 Dependence on renal dialysis; Z86.73 Personal history of transient ischemic attack (TIA), and cerebral infarction without residual deficits; Z93.1 Gastrostomy status; Z79.01 Long term (current) use of anticoagulants; Y92.89 Other specified places as the place of occurrence of the external cause; Z68.1 Body mass index [BMI] 19.9 or less, adult
CPT/HCPCS: 36415; 71045; 74021; 74250-TC; 76000; 80048; 80053; 83605; 83735; 84100; 84132; 84484; 85025; 85610-TC; 85730-TC; 87040; 87070-TC; 87081; 87205-TC; 90935; 92610-GN; 93005; 94640; 94760; 99285; C1751; C9113; G0378; J0131; J0330; J0690; J1644; J2405; J2765; J2997; J3010; J3480; J3490; J7030; J7050; J7612; Q9964

== ENCOUNTER 2022-02-19 10:25 | Emergency (ER) | payer MEDICAID ==
[~2022-02-19] VITALS: Ht 162.6 cm; Wt 77.1 kg
[2022-02-19 10:45] VITALS: BP_SYST 103
--- NOTE | 2022-02-19 11:00 | NUR ---
Patient to ER bed H1 to gown for evaluation. Side rails up.
--- NOTE | 2022-02-19 11:10 | NUR ---
ER at bedside examining patient.
--- NOTE | 2022-02-19 11:15 | NUR ---
PT FROM [facility] FOR GT DISLODGEMENT.
[2022-02-19] MEDS ORDERED: GASTROGRAFIN 120 ML ONE (11:46)
--- NOTE | 2022-02-19 12:00 | NUR ---
GT REPLACED TOLERATED WELL.PLACEMENT VERFIED.
--- NOTE | 2022-02-19 15:10 | NUR ---
Patient given written and verbal discharge instructions and verbalizes understanding. ER MD discussed with patient the results and treatment provided. Patient in stable condition. ID arm band removed. NO Rx given. Patient educated on pain management and to follow up with PMD. Pain Scale 0. Opportunity for questions provided and answered. Medication side effect fact sheet provided.
== END 2022-02-19 15:10 | disposition home or self-care (01) ==
LOC: SED 10:25
DX: K94.23 Gastrostomy malfunction (principal); Z79.899 Other long term (current) drug therapy
CPT/HCPCS: 99284; 43762; 74240; Q9963